=== PATIENT | female | born 2000 | race American Indian/Alaskan Native ===

== ENCOUNTER 2019-10-20 09:07 | Emergency (ER) | payer SELFPAY ==
[2019-10-20 09:17] VITALS: BP 113/81
--- NOTE | 2019-10-20 11:10 | Emergency Department Report ---
Chief Complaint: Skin/Abscess/Foreign Body Stated Complaint: LFT EAR BUG Time Seen by Provider: 10/20/19 10:09 - HPI History of Present Illness: This is a 19-year-old female who presents to the ED complaining of feeling of something in her left ear. Patient also states she feels a little pressure in her left ear. She denies putting any foreign object in the ear. She denies hearing loss - ROS Review of Systems: As noted in HPI - Exam Vital Signs: Vital Signs 10/20/19 09:15 Temperature 97.7 F Pulse Rate 105 H Respiratory 16 Rate Blood Pressure 113/81 O2 Sat by Pulse 98 Oximetry Physical Exam: GENERAL: Alert and oriented x3, no apparent distress, Normal Gait, atraumatic. a bit drowsy. Patient states claims she is tired HEAD: Head is normocephalic and a-traumatic. EARS: symetrical, atraumatic, non tender, ear canal clear and without cerumen bilaterally, tympanic membrance non inflamed. gross auditory nml bilaterally. SKIN: Warm and dry, No lesions, No ulceration or induration present. MSE screening note: Focused history and physical exam performed. Due to findings the following was ordered: ED Medical Decision Making - Medical Decision Making 19-year-old female presents with foreign body in ear. Upon examination, there was no foreign body in the ears bilaterally. Discussed with patient may be foreign body or insect may have crawled out. Vital signs are normal patient is in no acute distress. Discussed with patient follow-up with her primary care physician. At this time patient has no medical emergency and will be discharged with instructions ED Disposition for MSE Clinical Impression: Foreign body in ear Disposition: Z-07 MED SCREENING EXAM-LEFT Is pt being admited?: No Does the pt Need Aspirin: No Condition: Stable Instructions: Ear Foreign Body (ED) Additional Instructions: Make sure to follow up with the primary care physician as discussed. If you have any worsening symptoms or develop new symptoms please return to ED immediately. Referrals: PRIMARY CARE, [Primary Care Provider] - 3-5 Days [facility] [Outside] - 3-5 Days [facility] [Outside] - 3-5 Days [facility] [Outside] - 3-5 Days Forms: Work/School Release Form(ED) Time of Disposition: 11:25
== END 2019-10-20 11:52 | disposition home or self-care (01) ==
LOC: ED 09:07
DX: Z53.21 Procedure and treatment not carried out due to patient leaving prior to being seen by health care provider (principal)